=== PATIENT | male | born 1960 | race Caucasian/White ===

== ENCOUNTER → 2018-02-25 | Outpatient (CLI) | payer BC ==
--- NOTE | 2018-02-26 06:47 | MR ---
EXAMINATION TYPE: MR shoulder LT wo con DATE OF EXAM: 02/25/2018 COMPARISON: Outside left shoulder x-ray February 21, 2018 HISTORY: Lt shoulder pain S/P fall 5 days ago TECHNIQUE: Multiplanar, multisequence imaging of the left shoulder is performed without contrast. FINDINGS: Rotator Cuff: There is full-thickness retracted tear of the supraspinatus tendon with stump retractio n back to level of acromioclavicular joint seen best paracoronal image 16. There is at least high-gra de near full-thickness retracted tear of the infraspinatus tendon also present, few fibers may remain intact. Subscapularis tendon shows increased signal is surrounding fluid but remains intact. Rotator cuff muscle bulk is preserved. Surrounding fluid signal is noted. Acromioclavicular Joint: There is joint space loss and capsular hypertrophy. There is type II downslo ping acromion. Glenohumeral Joint: There is joint space loss with mild spurring from the inferior medial humeral hea d. Labrum: The labrum appears grossly intact given limitation of non-arthrogram study. Biceps Tendon: The long head of biceps is in normal location within bicipital groove. Bone marrow signal: There is some subchondral cystic change anteriorly. Spurring is noted anteriorly. Other: No additional significant abnormality is appreciated. IMPRESSION: 1. Acute massive rotator cuff tear with full-thickness retracted tear of the supraspinatus tendon and near full-thickness retracted tear of the infraspinatus tendon. Associated perimuscular edema is pre sent. Underlying degenerative changes are seen as detailed above somewhat more pronounced on identifi ed on plain films.
== END | disposition home or self-care (01) ==
LOC: RADMRIMAIN 08:07
PROVIDERS: ATTEND Orthopaedic Surgery
DX: M75.102 Unspecified rotator cuff tear or rupture of left shoulder, not specified as traumatic (principal)

== ENCOUNTER → 2018-03-25 | Outpatient (CLI) | payer BC ==
[2018-03-25 12:52] LABS: Basophils % (A) 1 %; Eosinophils # (A) 0.3 k/uL (0-0.7); Eosinophils % (A) 5 %; HCT 43.6 % (39.0-53.0); HGB 14.8 gm/dL (13.0-17.5); Lymphocytes # (A) 2.4 k/uL (1.0-4.8); Lymphocytes % (A) 39 %; MCH 31.3 pg (25.0-35.0); MCHC 33.9 g/dL (31.0-37.0); MCV 92.3 fL (80.0-100.0); Monocytes # (A) 0.4 k/uL (0-1.0); Monocytes % (A) 6 %; Neutrophils # (A) 2.9 k/uL (1.3-7.7); Neutrophils % (A) 48 %; Platelet Count 147 k/uL (150-450); RBC 4.73 m/uL (4.30-5.90); RDW 12.3 % (11.5-15.5); WBC 6.1 k/uL (3.8-10.6)
[2018-03-25 13:02] LABS: Potassium 4.5 mmol/L (3.5-5.1)
== END | disposition home or self-care (01) ==
LOC: LABMAIN 12:12
PROVIDERS: ATTEND Orthopaedic Surgery
DX: Z01.812 Encounter for preprocedural laboratory examination (principal); M75.42 Impingement syndrome of left shoulder; S46.012D Strain of muscle(s) and tendon(s) of the rotator cuff of left shoulder, subsequent encounter
CPT/HCPCS: 36415; 80051; 85025

== ENCOUNTER 2018-04-05 07:35 | Day surgery (SDC) | payer BC ==
[2018-03-27 15:13] VITALS: BMI 35.9
--- NOTE | 2018-04-04 14:34 | HP ---
HISTORY AND PHYSICAL DATE OF SERVICE: 04/05/2018. HISTORY: Paddy Terrazas is a 57-year-old patient seen with progressive left shoulder pain. Treatment options were discussed he elected proceed left shoulder arthroscopy. Consent was obtained. PAST MEDICAL HISTORY: Noncontributory. PAST SURGICAL HISTORY: Herniorrhaphy, tonsillectomy. MEDICATIONS: Aleve, Zyrtec. ALLERGIES: None reported. SOCIAL HISTORY: Patient denies tobacco use. PHYSICAL EXAMINATION: Evaluation of the left shoulder, flexion 20 degrees, abduction 20 degrees, external rotation is 30 degrees with pain and weakness. Tenderness along the anterolateral acromion rotator cuff insertion site. Impingement signs positive at 60 degrees. Drop- arm sign is positive. Distal neurovascular exam is intact. RADIOGRAPHS: Left shoulder type 2 anterior acromion, glenohumeral joint osteoarthritis. No fracture. MRI left shoulder revealed a massive rotator cuff tear. IMPRESSION: Left shoulder impingement with rotator cuff tear. PLAN: Left shoulder arthroscopy with subacromial decompression, probable arthroscopic rotator cuff repair, probable Maria G procedure and debridement. MMODL / IJN: [id number] /
[~2018-04-05 07:35] MED LIST: DEXAMETHASONE SOD PHOSPHATE 10 MG/ML 1 ML VIAL IV ONE; LACTATED RINGERS 1,000 ML IV SCH; MIDAZOLAM 2 MG/2 ML VIAL IV PRN; ONDANSETRON 4 MG/2 ML VIAL IVP ONE; SCOPOLAMINE 1.5MG/72HR PATCH TRANSDERM ONE; fentaNYL (PF) 50 MCG/ML 2 ML AMP IV PRN
[2018-04-05] MEDS ORDERED: LIDOCAINE 1% 20 ML VIAL (10MG/ML) FOR IV START INTRADERMA ONE (08:23)
[2018-04-05] MEDS ORDERED: fentaNYL (PF) 50 MCG/ML 2 ML AMP ONE (09:59)
[2018-04-05] MEDS ORDERED: LIDOCAINE 1% INJ 10MG/ML (20 ML MDV) ONE (09:59)
[2018-04-05] MEDS ORDERED: ROPIVACAINE 5 MG/ML 30 ML VIAL ONE (09:59)
[2018-04-05] MEDS ORDERED: PROPOFOL 10 MG/ML 20 ML VIAL IV ONE (09:59)
[2018-04-05] MEDS ORDERED: SUCCINYLCHOLINE CHLORIDE 100 MG/5 ML SYR IV ONE (09:59)
[2018-04-05] MEDS ORDERED: MIDAZOLAM 2 MG/2 ML VIAL ONE (09:59)
--- NOTE | 2018-04-05 12:21 | P.OP ---
Date of Procedure: 04/05/18 Preoperative Diagnosis: Left shoulder impingement Postoperative Diagnosis: 1. Left shoulder rotator cuff tear 2. Left shoulder impingement 3. Left shoulder acromioclavicular joint osteoarthritis 4. Left shoulder partial long head biceps tendon tear 5. Left shoulder superficial labral tear Procedure(s) Performed: 1. Left shoulder arthroscopic rotator cuff repair 2. Left shoulder arthroscopic subacromial decompression 3. Left shoulder arthroscopic Maria G procedure 4. Left shoulder arthroscopic biceps tenotomy 5. Left shoulder arthroscopic debridement labral tear Implants: 44.75 Arthrex swivel lock anchors Anesthesia: GETA, regional (Interscalene) Surgeon: Andrea Mendenhall Hydrogen Treater #1: Tim Tamayo Estimated Blood Loss (ml): 11 Pathology: none sent Condition: stable Disposition: PACU Indications for Procedure: 57-year-old patient seen with progressive left shoulder pain. After having treatment options discussed, he elected to proceed with arthroscopy. Operative Findings: See description of procedure Description of Procedure: Patient underwent a shoulder block by department of anesthesia. The patient was then taken to the operative suite. The patient underwent a general anesthetic by the department of anesthesia. The patient was placed into a lateral position and secured. There was appropriate padding of the bony prominence. Left shoulder was then prepped and draped in normal sterile orthopedic fashion. We placed the extremity in 10 pounds of longitudinal traction. A posterior incision was now made for a posterior working portal site. The trocar and cannula were inserted into the glenohumeral joint. Arthroscopy was initiated. Spinal needle was now inserted anteriorly, to ascertain the anterior working portal site. An incision was now made in that area, a trocar was inserted followed by a probe. There was superficial tearing noted anterior/superior labrum. There was partial tearing and hyperemia long head biceps tendon. There were grade 1 chondromalacia changes of glenohumeral joint. There was an obvious significant rotator cuff tear visualized from glenohumeral side. I performed arthroscopic biceps tenotomy. I debrided the superficial labral tear down to stable tissue. The residual labrum was stable. Instruments now removed from the glenohumeral joint. Utilizing the posterior working portal site, the trocar and cannula were inserted into the subacromial space. Arthroscopy initiated. I made an incision 2 fingerbreadths lateral to the acromion. I introduced my trocar followed by my [employer] ablator. I now began ablating thick subacromial bursal tissue, which exposed the undersurface of the anterior acromion. This was diminished subacromial space. There was a very prominent anterior acromion. A motorized bur was introduced and a subacromial decompression was performed. I also excised some osteophytes off the inferior aspect of the distal clavicle. The AC joint was visualized and noted to be fairly arthritic. Our motorized bur was introduced in the anterior portal site and a Maria G procedure was performed without difficulty, decompressing the AC joint nicely. I turned my attention to the rotator cuff. There was a massive rotator cuff tear. I measured approximately 3.5 cm and was retracted approximately 11 0.5 cm. There were some intrasubstance tears noted posteriorly and midportion of the tear. After performing some generous releases I was able to pull the tendon over the footprint. I abraded the footprint with a motorized bur. I repaired those intrasubstance tears utilizing 2 interrupted sutures. I now created an grain processor portal site off the lateral acromion. I introduced 2 medial anchors with 2 sutures each. All 8 limbs of suture were passed through good bites of rotator cuff tendon. We now crisscrossed our sutures and introduced 2 lateral anchors which compressed the tendon along the footprint very nicely. The residual suture limbs were clipped. We had a good stable repair. I injected 1 mL Renue intra-articular. Instruments now removed from the portal sites. All portal sites were approximated with nylon suture. Sterile dressings were applied followed by a shoulder immobilizer. Candido RICHTER assisted with the procedure. The patient was awakened, transferred to a bed, and taken to recovery in stable condition.
[2018-04-05 12:26] VITALS: TEMP 96.8
[2018-04-05 13:03] VITALS: RESP 16
--- NOTE | 2018-04-05 13:27 | P.ONQ ---
Anesthesiology Proc Note - PNB - Peripheral Nerve Block Performed Left Interscalene Indication: Acute Post-Operative Pain, Dx/Pain Location (Dr Mendenhall) Sedation Type: Sedate with meaningful contact maintained Preparation: Sterile Prep Position: Supine Catheter: None Needle Types: Other (see comment) (Angella) Needle Size: 50mm (2") Needle Gauge: 21 Technique: Ultrasound (0.5% Rovivacaine 14cc, 2% Lidocaine with 1:200,000 epi 14cc) Blood Aspirated: No Pain Paresthesia on Injection Noted: No Resistance on Injection: Normal Events: Uneventful and Well Tolerated
[2018-04-05 13:59] VITALS: BP 146/96; PULSE 72
== END 2018-04-05 14:22 | disposition home or self-care (01) ==
LOC: OR 07:35
PROVIDERS: ATTEND Orthopaedic Surgery
DX: M75.102 Unspecified rotator cuff tear or rupture of left shoulder, not specified as traumatic (principal); M75.42 Impingement syndrome of left shoulder; M19.012 Primary osteoarthritis, left shoulder; S46.112A Strain of muscle, fascia and tendon of long head of biceps, left arm, initial encounter; S43.492A Other sprain of left shoulder joint, initial encounter; X58.XXXA Exposure to other specified factors, initial encounter; M94.212 Chondromalacia, left shoulder; M25.712 Osteophyte, left shoulder; Z79.1 Long term (current) use of non-steroidal anti-inflammatories (NSAID); Z79.899 Other long term (current) drug therapy
CPT/HCPCS: 64415; 29824; 29827; 29826; C1713 ×2; C1765; J2250; J1100; J0690; J2405; J2001; J3010; J2795; J0330; J2704